=== PATIENT | female | born 1965 | race Caucasian/White ===

== ENCOUNTER 2016-05-28 15:29 | Emergency (ER) | payer MEDICAID ==
[2016-05-28 15:27] LABS: INFLUENZA A NEG (NEG)
[2016-05-28 15:28] LABS: INFLUENZA B NEG (NEG)
[~2016-05-28 15:29] MED LIST: ALBUTEROL MININEB NEB; AMBIEN PO; CELEXA PO; CITALOPRAM HBR40 MG PO; CORTISPORIN-TC10 M1 AD; DELTASONE20 MG; DEXILANT30 MG PO; DICLOFENAC PO; ELIQUIS5 MG PO; ESTROGEN PO; FLEXERIL10 MG PO; FLONASE 0.05% N16 G1; IBUPROFEN600 MG PO; LODINE PO; LORTAB 5-325 M1 EACH PO; MEDROL4 MG/DOSE- PO; MORGIDOX100 MG PO; NAPROSYN500 MG PO; NICOTINE TRANSDE7 MG TD; NORCO1 TAB 10/3 DOB; PATADAY2.5 ML OU; PHENERGAN DM; PHENERGAN PO; PREDNISONE PO; PREDNISONE10 MG PO; PROAIR HFA8.5 GM INH; PULMICORT180 MCG/A1 IH; ROBAXIN 750750 M1 PO; ROBAXIN PO; ROBAXIN500 MG PO; SPIRIVA18 MCG PO; SYMBICORT80 INH; TESSALON PERLES PO; TYLENOL #3 PO; VOLTAREN100 GM; VOLTAREN100 GM TOP; VOLTAREN75 MG PO
== END 2016-05-28 15:53 | disposition home or self-care (01) ==
LOC: CFTX 15:29
PROVIDERS: Physician Assistant
DX: G89.29 Other chronic pain (principal); M54.5 Low back pain; M25.562 Pain in left knee; J06.9 Acute upper respiratory infection, unspecified; J45.909 Unspecified asthma, uncomplicated; Z90.49 Acquired absence of other specified parts of digestive tract; Z90.710 Acquired absence of both cervix and uterus; Z88.0 Allergy status to penicillin
CPT/HCPCS: 36415; 87804; 96372; 99283; J1885

== ENCOUNTER 2016-07-01 18:31 | Emergency (ER) | payer MEDICAID ==
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
[2016-07-01 18:56] LABS: BASOPHIL# 0.1 X10e3 (0-0.3); BASOPHIL% 1.2 % (0-2.5); EOSINOPHIL# 0.3 X10e3 (0-0.7); EOSINOPHIL% 3.7 % (0.0-7.0); HEMATOCRIT 37.7 % (35.0-45.0); HEMOGLOBIN 11.9 gm/dL (12.0-16.0); LYMPHOCYTE# 2.8 X10e3 (1.0-3.5); LYMPHOCYTE% 34.1 % (17.0-45.0); MEAN CELL VOLUME 78.4 FL (83-96); MEAN CORPUSCULAR HEMOGLOBIN 24.7 PG (28-34); MEAN CORPUSCULAR HGB CONC 31.5 g/dL (30-36); MEAN PLATELET VOLUME 7.9 FL (6.5-11.5); MONOCYTE# 0.6 X10e3 (0-1.0); MONOCYTE% 7.2 % (3.0-12.0); NEUTROPHIL# 4.5 X10e3 (1.5-7.1); NEUTROPHIL% 53.8 % (40-75); PLATELET COUNT 244 X10e3 (140-420); RED CELL DISTRIBUTION WIDTH 16.6 % (11.0-15.5); WHITE BLOOD COUNT 8.3 X10e3 (4.0-10.5)
[2016-07-01 19:01] LABS: DIFF IND NO
[2016-07-01 19:20] LABS: ALBUMIN SERUM 3.6 g/dL (3.5-5.0); BILIRUBIN,TOTAL 0.3 mg/dL (0.2-2.0); BUN/CREATININE RATIO 19.09; CREATININE SERUM 1.1 mg/dL (0.6-1.4); GLOM FILT RATE Estimated 58.1 mL/min (>60); POTASSIUM 4.4 mmol/L (3.5-5.1); PROTEIN TOTAL SERUM 7.2 g/dL (6.0-8.3)
[2016-07-01 21:18] LABS: URINE SOURCE CLEAN CATCH
[2016-07-01 21:37] LABS: URINE APPEARANCE CLEAR; URINE BILIRUBIN NEG (NEG); URINE BLOOD NEG (NEG); URINE COLOR YELLOW; URINE GLUCOSE NEG (NEG); URINE KETONE TRACE (NEG); URINE LEUKOCYTE ESTERASE 2+ (NEG); URINE NITRATE NEG (NEG); URINE PH 5.5 (5-8); URINE PROTEIN NEG (NEG); URINE SPECIFIC GRAVITY 1.024 (1.003-1.035); URINE UROBILINOGEN 0.2 MG/DL (NEG)
[2016-07-01 21:41] LABS: CULTURE INDICATED? YES; URINE BACTERIA AUWI 2+ (NEGATIVE); URINE SQUAMOUS EPITHELIAL CELL OCC /[HPF]; UWBCS1 AUWI 25-50 (0-5)
== END 2016-07-01 23:16 | disposition home or self-care (01) ==
LOC: CFTX 18:31
PROVIDERS: Nurse Practitioner Family
DX: S10.93XA Contusion of unspecified part of neck, initial encounter (principal); S30.1XXA Contusion of abdominal wall, initial encounter; S60.221A Contusion of right hand, initial encounter; S90.32XA Contusion of left foot, initial encounter; S80.02XA Contusion of left knee, initial encounter; Z86.73 Personal history of transient ischemic attack (TIA), and cerebral infarction without residual deficits; J45.909 Unspecified asthma, uncomplicated; J44.9 Chronic obstructive pulmonary disease, unspecified; F17.200 Nicotine dependence, unspecified, uncomplicated; Z23 Encounter for immunization; Z90.710 Acquired absence of both cervix and uterus; W01.0XXA Fall on same level from slipping, tripping and stumbling without subsequent striking against object, initial encounter
CPT/HCPCS: 29125; 29515; 72040; 73130; 73562; 73590; 73610; 73630; 74177; 80053; 81003; 82150; 83690; 85025; 87086; 90471; 90715; 96361; 96374; 99284; J1885; Q9967